=== PATIENT | male | born 1950 | race Caucasian/White ===

== ENCOUNTER 2017-09-15 08:48 | Observation (INO) ==
[2017-09-15] MEDS ORDERED: Ibuprofen 600 MG TABLET PO ONE (09:03)
--- NOTE | 2017-09-15 09:07 | Emergency Department Note ---
Disposition Clinical Impression: Viral infection, CAP (community acquired pneumonia), Hypoxia Disposition: Admitted As Inpatient Condition: Fair Instructions: Community-acquired Pneumonia (ED) Reasons to Return/Additional Instructions: Blood pressure screening: When you had your blood pressure taken, if the top number was greater than 120 with a bottom number was greater than 80, I discussed and recommended that you call your primary care provider or a physician of your choice this week to arrange follow-up for further evaluation of your blood pressure. Elevated blood pressures which go untreated can lead to stroke, heart attack, kidney failure and other life-threatening diseases. This is a screening exam and recommendations are to follow with your Family Physician. ( We discussed reasons why the elevation could be occurring at this time. ) If you have had an EKG and/or x-ray performed in the emergency department, it will be reviewed by the side laster and/or radiologist. If the review changes your diagnosis or treatment you will be contacted at the phone number you provided. Prescribed outpatient testing: Please call to schedule an appointment for the test that was ordered on the form provided. If you been prescribed an antibiotic: Take it as instructed until itis all finished. If you cannot tolerate that medication for some reason, call your physician for a replacement. If he had a specimen collected for a culture, a culture report takes 48-72 hours to generate. You will be contacted if a change in treatment is needed. Return if your condition worsens or if you have severe pain, fever, vomiting or difficulty breathing. If you received or were prescribed a medication that may cause drowsiness ( Tramadol, Phenergan, Trazodone, Diazepam, Lorazepam, Hydroxyzine, Xanax, Hydrocodone, Oxycodone, Codeine, or any other medication) DO NOT drive or drink alcohol, or operate machinery that requires you to be alert for at least 8 hours after taking that medication. If you smoke or chew tobacco products: discuss with your family physician options to help in the cessation in the use of tobacco products. If you to find a physician: Go to [email or web address] or call: [facility] [phone] [facility], You may have multiple scripts and some may have been electronically sent . If you are give a printed script please also take this in when filling the scripts. A diagnosis may require multiple medications to treat and all are important in your healthcare issues. Prescriptions: GuaiFENesin/Dextromethorphan [Robitussin/DM] 10 ml PO Q6HR #180 syrup Albuterol Sulfate [Albuterol Inhaler] 2 puff IH Q6H #1 puff Ciprofloxacin HCl [Cipro] 500 mg PO Q12H #20 tablet Referrals: Calin Grijalva, [employer] SET UP OPERATOR [Primary Care Provider] - Forms: ED Satisfaction Letter Time of Disposition: 11:50 ([facility]) URI/Sore Throat HPI - General Chief Complaint: ED Upper Respiratory Infection Stated Complaint: "Feel like I got the flu." Time Seen by Provider: 09/15/17 08:50 Source: patient Mode of arrival: ambulatory Limitations: no limitations Nursing Notes Reviewed: Yes Vital Signs Reviewed: Yes - History of Present Illness HPI Narrative: Less than 24 hours fever chills cough congestion shortness of breath difficulty ambulating but no blurred vision no double vision denies any neck pain neck stiffness he denies any rash or lesions he denies diarrhea melena hematochezia or hematemesis Pt Subjective Complaint: fever, cough, flu symptoms, nasal congestion Onset (ago): day(s) Duration: constant, gradually worsening Severity: mild Improves with: nothing Worsens with: nothing If sputum, description: watery Context: sick contacts Associated symptoms: Reports: fever, myalgias, nasal congestion, cough, shortness of breath. Denies: chills, voice changes, diaphoresis, headache, rhinorrhea, sore throat, stiff neck, chest pain, abdominal pain, nausea, vomiting, diarrhea, dysuria, epistaxis, ear pain Treatments prior to arrival: acetaminophen, ibuprofen - Related Data Home Medications Medication Instructions Recorded Confirmed Digoxin [Lanoxin] 0.25 mg PO DAILY 08/19/15 09/15/17 Lisinopril [Zestril] 20 mg PO DAILY 08/19/15 09/15/17 Metoprolol [Lopressor] 50 mg PO BID 08/19/15 09/15/17 Warfarin [Coumadin] 7 mg PO 1800 08/19/15 09/15/17 metFORMIN [Glucophage] 1,000 mg PO BIDWM 08/19/15 09/15/17 Previous Rx's Medication Instructions Recorded Albuterol Sulfate [Albuterol 2 puff IH Q6H #1 puff 09/15/17 Inhaler] Ciprofloxacin HCl [Cipro] 500 mg PO Q12H #20 tablet 09/15/17 GuaiFENesin/Dextromethorphan 10 ml PO Q6HR #180 syrup 09/15/17 [Robitussin/DM] Allergies Allergy/AdvReac Type Severity Reaction Status Date / Time No Known Allergies Allergy Verified 08/19/15 21:55 All systems ED: reviewed and negative except as stated. Review of Systems: As Per HPI Constitutional: Denies: fever, chills, weakness Eyes: Denies: eye pain, eye discharge ENT ED: Denies: ear pain Cardiovascular: Denies: chest pain Respiratory: Reports: cough, dyspnea, wheezes, sputum production, other (Hypoxia ) Gastrointestinal: Denies: abdominal pain, nausea, vomiting Genitourinary: Denies: urgency, dysuria Musculoskeletal: Denies: back pain, neck pain Integumentary: Denies: rash, abrasion Neurological: Denies: headache, weakness Psychiatric: Denies: anxiety, depression Endocrine: Denies: fatigue Hematological/Lymphatic: Denies: easy bleeding Allergic/Immunologic: Denies: facial swelling URI PMH - Past Medical History Medical history: Reports: atrial fibrillation (Anticoagulated), diabetes, hypertension Psychiatric history: Reports: no psych history - Social History Smoking Status: Current every day smoker Alcohol use: Reports: none Drug use: Reports: none Physical Exam - General Limitations: no limitations General appearance: alert, in no apparent distress, anxious, cachectic - Head Head exam: atraumatic, normocephalic, normal inspection - Eye Eye exam: Present: normal appearance, PERRL, EOMI - ENT ENT exam: normal exam, normal oropharynx, mucous membranes moist, TM's normal bilaterally, normal external ear exam - Neck Neck exam: Present: normal inspection, full ROM, trachea midline - Chest Chest inspection: Present: normal inspection, symmetric chest wall rise - Respiratory Respiratory exam: Present: wheezes, prolonged expiratory phase - Cardiovascular Cardiovascular exam: Present: irregular rhythm - Abdominal Exam Abdominal exam: Present: soft, Non-Tender, normal bowel sounds. Absent: mass, pulsatile mass - Extremities Exam Extremities exam: Present: normal inspection, full ROM, normal capillary refill. Absent: tenderness - Expanded Lower Extremity Exam Neurovascular/Tendon exam: Present: normal capillary refill, normal fine/light touch Gait: observed and normal - Back Exam Back exam: Present: normal inspection, full ROM. Absent: muscle spasm - Neurological Exam Neurological exam: Present: alert, oriented X3, CN II-XII intact, normal gait - Psychiatric Psychiatric exam: Present: normal affect, normal mood - Skin Skin exam: Present: warm, dry, intact, normal color Course Course Narrative: Seen and examined patient agreed to having IV antibiotics but refuses to stay despite the fact that he is hypoxic having arrhythmia though he has been normotensive during his stay here in the emergency room he has had occasional PVCs with an underlying atrial fibrillation rhythm though repeated efforts by myself and staff to have him stay now reconsidered Patient now is agreeable to staying overnight receiving a dose of IV antibiotics today and a dose of IV antibiotics tomorrow patient transferred to [facility] stable Vital Signs Temperature 101.4 F H 09/15/17 08:51 Pulse Rate 96 09/15/17 08:51 Respiratory Rate 18 09/15/17 08:51 Blood Pressure 158/98 09/15/17 08:51 O2 Sat by Pulse Oximetry 90 09/15/17 08:51 Temperature 100.6 F H 09/15/17 11:10 Pulse Rate 108 09/15/17 11:10 Respiratory Rate 18 09/15/17 11:10 Blood Pressure 155/85 09/15/17 11:10 O2 Sat by Pulse Oximetry 88 09/15/17 11:10 Oxygen Delivery Oxygen Delivery Room Air Upper Respiratory Infection - Differential Diagnosis Differential Diagnosis: Likely: upper respiratory infection, other viral infection, bronchitis, pharyngitis, pneumonia - Medical Records Medical records reviewed: Yes I reviewed the patient's medical records. - Lab Data Lab results reviewed: Yes I reviewed the patient's lab results. Result diagrams: 09/15/17 09:20 09/15/17 09:20 Lab Results 09/15/17 09/15/17 09/15/17 Range/Units 09:20 09:20 09:20 WBC 7.4 (4.3-11.1) K/mcL RBC 5.11 (4.19-5.50) M/mcL Hgb 15.0 (12.9-16.9) g/dL Hct 43.2 (37.5-50.1) % MCV 84.5 (83.0-100.0) fL MCH 29.4 (28.0-33.3) pg MCHC 34.7 (31.6-35.5) g/dL RDW 14.0 (11.5-14.5) % Plt Count 146 (140-400) K/mcL MPV 10.7 (9.4-12.4) fL Immature Gran % 0.5 (0-4) % Seg Neutrophils % 82.9 % Lymphocytes % 7.4 % Monocytes % 7.8 % Eosinophils % 0.7 % Basophils % 0.7 % Neutrophils # 6.2 (1.6-8.9) K/mcL Lymphocytes # 0.6 (0.6-4.6) K/mcL Monocytes # 0.6 (0.0-1.3) K/mcL Eosinophils # 0.1 (0.0-0.6) K/mcL Basophils # 0.1 (0.0-0.2) K/mcL PT (9.4-12.1) Seconds INR APTT 54.0 H (26.0-36.0) Seconds Sodium 135 L (136-145) mEq/L Potassium 3.7 (3.5-5.1) mEq/L Chloride 103 (98-107) mEq/L Carbon Dioxide 23 (23-29) mEq/L BUN 12 (8-23) mg/dL Creatinine 0.68 L (0.70-1.30) mg/dL Est GFR ( Amer) > 60 (> 60) Est GFR (Non-Af Amer) > 60 (> 60) BUN/Creatinine Ratio 18 (6-26) Glucose 204 H (70-105) mg/dL Calculated Osmolality 286 (280-300) Lactic Acid (0.5-2.2) mmol/L Calcium 9.2 (8.6-10.3) mg/dL Troponin I (< 0.04) ng/mL 09/15/17 09/15/17 09/15/17 Range/Units 09:20 09:20 09:20 WBC (4.3-11.1) K/mcL RBC (4.19-5.50) M/mcL Hgb (12.9-16.9) g/dL Hct (37.5-50.1) % MCV (83.0-100.0) fL MCH (28.0-33.3) pg MCHC (31.6-35.5) g/dL RDW (11.5-14.5) % Plt Count (140-400) K/mcL MPV (9.4-12.4) fL Immature Gran % (0-4) % Seg Neutrophils % % Lymphocytes % % Monocytes % % Eosinophils % % Basophils % % Neutrophils # (1.6-8.9) K/mcL Lymphocytes # (0.6-4.6) K/mcL Monocytes # (0.0-1.3) K/mcL Eosinophils # (0.0-0.6) K/mcL Basophils # (0.0-0.2) K/mcL PT 48.3 H* (9.4-12.1) Seconds INR 4.3 APTT (26.0-36.0) Seconds Sodium (136-145) mEq/L Potassium (3.5-5.1) mEq/L Chloride (98-107) mEq/L Carbon Dioxide (23-29) mEq/L BUN (8-23) mg/dL Creatinine (0.70-1.30) mg/dL Est GFR ( Amer) (> 60) Est GFR (Non-Af Amer) (> 60) BUN/Creatinine Ratio (6-26) Glucose (70-105) mg/dL Calculated Osmolality (280-300) Lactic Acid 1.5 (0.5-2.2) mmol/L Calcium (8.6-10.3) mg/dL Troponin I < 0.03 (< 0.04) ng/mL - Radiology Data Radiology results reviewed: Yes I reviewed the patient's radiology results. ITS Impressions Chest X-Ray 09/15/17 09:03 IMPRESSION: No focal consolidative pneumonia. Moderate prominence of interstitial lung markings may represent pulmonary interstitial edema, versus chronic interstitial lung disease. Correlate with volume status. Trace bilateral pleural effusions. D/ / David Vanessa MD / David Vanessa MD Interpreting Provider: David Vanessa MD Chest CT 09/15/17 10:27 IMPRESSION: 1. Findings suspicious for developing pneumonia in the right lower lobe. 2. Scattered ground-glass and sub solid nodules in the right lung, as above. Please see sub solid nodule follow-up guidelines below. 3. Enlarged mediastinal lymph nodes may be reactive. Attention on follow-up imaging is recommended. 4. Cholelithiasis. RECOMMENDATIONS: Fleischner Society guidelines for follow-up and management of incidentally detected subsolid pulmonary nodules: Solitary ground glass nodule < 6 mm - No routine follow-up. > than or equal to 6 mm - CT at 6-12 months to confirm persistence, then CT every 2 years until 5 years. Solitary part-solid nodules < 6 mm - No routine follow-up. > than or equal to 6 mm - CT at 3-6 to confirm persistence. If unchanged and solid component remains less than 6 mm, annual CT should be performed for 5 years. Multiple subsolid nodules < 6 mm - CT at 3-6 months. If stable, consider CT at 2 and 4 years. > than or equal to 6 mm - CT at 3-6 months. Subsequent management based on the most suspicious nodule(s). - Low risk patients include individuals with minimal or absent history of smoking and other known risk factors. - High risk patients include individuals with a history or smoking or known risk factors. Radiology 2017 http://pubs.[facility]na.org/doi/full/10.1148/[email or web address] D/ / Barry Garcia / Barry Garcia Interpreting Provider: Barry Garcia - EKG Data EKG attestation: Yes I reviewed and interpreted this EKG. EKG results narrative: EKG shows PVCs what appears to be consistent with underlying atrial fib he has had diffuse ST segment depression in all leads left access deviation rate 113 QRS 96 QT 321 access -44 Critical Care Time Critical Care Time: Yes Total Critical Care Time: 35 Attestation: Critical care performed: 35 minutes as the results of the patient being persistently hypoxic during his hospitalization trying determine the etiology making sure it is not cardiac versus pulmonary the from CAT scan and appears to be pulmonary in etiology secondary to Time is exclusive of separately billable procedures. Time includes: direct patient care, patient reassessment, coordination of patient care, interpretation of data (laboratory data, radiology data, and respiratory data), review of patient's medical records, medical consultation and documentation of patient care. Procedures included in critical care time: Procedures excluded from critical care time:
[2017-09-15 09:27] LABS: Basophils # 0.1 K/mcL (0.0-0.2); Basophils % 0.7 %; Eosinophils # 0.1 K/mcL (0.0-0.6); Eosinophils % 0.7 %; Hematocrit 43.2 % (37.5-50.1); Immature Granulocytes % 0.5 % (0-4); Lymphocytes # 0.6 K/mcL (0.6-4.6); Lymphocytes % 7.4 %; Mean Corpuscular HGB Conc 34.7 g/dL (31.6-35.5); Mean Corpuscular Hemoglobin 29.4 pg (28.0-33.3); Mean Corpuscular Volume 84.5 fL (83.0-100.0); Mean Platelet Volume 10.7 fL (9.4-12.4); Monocytes # 0.6 K/mcL (0.0-1.3); Monocytes % 7.8 %; Neutrophils # 6.2 K/mcL (1.6-8.9); Platelet Count 146 K/mcL (140-400); Red Blood Count 5.11 M/mcL (4.19-5.50); Segmented Neutrophils % 82.9 %
[2017-09-15] MEDS ORDERED: Aspirin 81 MG TAB.CHEW PO ONE (09:30)
[2017-09-15 09:37] LABS: INR 4.3
[2017-09-15 09:43] LABS: Prothrombin Time 48.3 Seconds (9.4-12.1)
[2017-09-15 09:45] LABS: BUN/Creatinine Ratio 18 (6-26); Blood Urea Nitrogen 12 mg/dL (8-23); Calcium 9.2 mg/dL (8.6-10.3); Carbon Dioxide 23 mEq/L (23-29); Chloride 103 mEq/L (98-107); Glucose 204 mg/dL (70-105); Osmolality,Calculated 286 (280-300); Potassium 3.7 mEq/L (3.5-5.1); Sodium 135 mEq/L (136-145); eGFR For African Americans > 60 (> 60); eGFR For Non-African Americans > 60 (> 60)
[2017-09-15] MEDS ORDERED: Azithromycin 500 MG in D5% in Water 250 ML IVPB ONE (11:52)
--- NOTE | 2017-09-15 15:42 | Internal Med History&Physical ---
Date of Encounter: 09/15/17 Time of Encounter: 15:10 Assessment and Plan (1) CAP (community acquired pneumonia) Current visit: Yes Status: Acute He has been started on Rocephin and Zithromax. Influenza screening test was negative. I will add lactobacillus. Qualifiers: Laterality: right Lung location: lower lobe of lung Qualified Code(s): J18.1 - Lobar pneumonia, unspecified organism (2) Atrial fibrillation Current visit: Yes Status: Chronic We will hold Coumadin since INR elevated. Continue Lanoxin. Recheck labs in a.m. Qualifiers: Atrial fibrillation type: chronic Qualified Code(s): I48.2 - Chronic atrial fibrillation (3) HTN (hypertension) Current visit: Yes Status: Chronic Continue Lopressor and lisinopril. Qualifiers: Hypertension type: essential hypertension Qualified Code(s): I10 - Essential (primary) hypertension Internal Medicine - H&P: HPI Chief complaint: Cough, dyspnea, myalgias Admitted From: Emergency Dept Plans for Post Hospital Care: Home History of present illness: Mr. Pfeiffer is a 67 year old male who came to emergency room complaining of diffuse myalgias, dyspnea, and cough onset previous afternoon. He denies nausea or vomiting. He was evaluated in emergency room and was found to have probable early pneumonia in the right lower lung on chest CT. He was admitted to [facility] floor for ongoing care needs. His respiratory history is significant for having smoked since age 17 up to 2 packs per day. He has not had PFTs and does not use home oxygen. He has not been tested for HENRIETTA. Past Med Surg Social Fam HX - Past Medical History Medical history: atrial fibrillation (Anticoagulated), diabetes, hypertension Psychiatric history: no psych history - Social History Smoking Status: Current every day smoker Smokeless Tobacco Status: No Alcohol use: none Drug use: none Internal Medicine - H&P: Meds Digoxin [Lanoxin] 0.25 mg PO DAILY 08/19/15 [History] Lisinopril [Zestril] 20 mg PO DAILY 08/19/15 [History] Metoprolol [Lopressor] 50 mg PO BID 08/19/15 [History] Warfarin [Coumadin] 7 mg PO 1800 08/19/15 [History] metFORMIN [Glucophage] 1,000 mg PO BIDWM 08/19/15 [History] Albuterol Sulfate [Albuterol Inhaler] 2 puff IH Q6H #1 puff 09/15/17 [Rx] Ciprofloxacin HCl [Cipro] 500 mg PO Q12H #20 tablet 09/15/17 [Rx] GuaiFENesin/Dextromethorphan [Robitussin/DM] 10 ml PO Q6HR #180 syrup 09/15/17 [ Rx] 3 Allergy/AdvReac Type Severity Reaction Status Date / Time No Known Allergies Allergy Verified 08/19/15 21:55 All Systems PM: A 10-system review of systems was performed and is negative for pertinent findings except as documented above in the HPI. Review of systems: Gen.: He states his weight has been stable the past few months Cardiovascular: He has history of hypertension and chronic atrial fibrillation. He denies CT heart failure angina DVT or pulmonary embolus Respiratory: As per history of present illness GI: He denies disorders of his liver gallbladder or exocrine pancreas : He denies hematuria or dysuria or kidney stones Neurologic: He denies large distribution strokes or seizures. Endocrine: He was diagnosed with DM 2 approximately 2011. He has hyperlipidemia but denies thyroid disease Hematology/oncology: Denies blood disorders cancers or anemia. Psychiatric: He denies anxiety depression or other mental health issues Muscle skeletal: He had ankle fracture in 2001 requiring surgical repair. Denies arthritis or gout or other bone joint or muscle disorders. - Constitutional Vitals: Temp Pulse Resp BP Pulse Ox 100.5 F H 93 18 144/77 89 09/15/17 12:47 09/15/17 12:47 09/15/17 12:47 09/15/17 12:47 09/15/17 12:47 Exam: Gen.: He is a well-developed well-nourished male resting comfortably in bed and appears in no severe distress HEENT: Head is atraumatic and normocephalic. Eyes: EOMI. There is no sclerae icterus. Mouth: Mucosa is moist. Neck: Supple and nontender. There is no thyromegaly or adenopathy noted. Heart: Irregularly irregular without murmurs or gallops. Lungs: No wheezes or crackles are heard. Abdomen: Soft and nontender. No masses or guarding noted. Extremities: There is no edema of his legs. He has minimal DJD changes of his hands. Neurologic: Mental status: He is talkative and a good historian. Cranial nerves : Smile is symmetric. Forehead wrinkles bilaterally. Tongue protrudes midline. EOMI. Motor: There is no pronator drift. Cerebellar: Finger to nose is intact bilaterally. Skin: Warm and dry Internal Med - H&P Results - Labs CBC & Chem 7: 09/15/17 09:20 09/15/17 09:20
[2017-09-15] MEDS ORDERED: Albuterol 2.5 MG/3 ML NEBULIZER IH PRN ×2 (15:48→19:56)
[2017-09-15] MEDS ORDERED: *HR* Metformin 500 MG TABLET PO SCH ×2 (17:00→19:56)
[2017-09-15] MEDS ORDERED: 0.9 % Sodium Chloride 1,000 ML IVC ONE (19:02)
[2017-09-15] MEDS ORDERED: Acetaminophen 325 MG TABLET PO PRN ×2 (19:04→19:56)
[2017-09-15] MEDS ORDERED: 0.45 % Sodium Chloride w/KCl 20 MEQ/1,000 ML MLS IVC SCH (19:15)
[2017-09-15] MEDS ORDERED: Lisinopril 20 MG TABLET PO SCH (19:51)
[2017-09-15] MEDS ORDERED: 0.9 % Sodium Chloride 1,000 ML IVC SCH (19:56)
[2017-09-15] MEDS ORDERED: Naloxone 0.4 MG/ML INJ IVP PRN (19:56)
[2017-09-15] MEDS ORDERED: *HR* Warfarin 7.5 MG TABLET PO SCH (19:56)
[2017-09-15] MEDS ORDERED: Nicotine 21 MG PATCH.TD24 TD SCH (20:00)
[2017-09-15] MEDS ORDERED: *HR* Digoxin 0.25 MG TABLET PO SCH (20:00)
[2017-09-15] MEDS: *HR* Digoxin 0.25 MG TABLET PO SCH (20:56)
[2017-09-15] MEDS: 0.45 % Sodium Chloride w/KCl 20 MEQ/1,000 ML MLS IVC SCH (20:56)
[2017-09-15] MEDS: Lactobacillus 1 EACH CAP.SPRINK PO SCH (20:56)
[2017-09-15] MEDS: Nicotine 21 MG PATCH.TD24 TD SCH (20:58)
[2017-09-15] MEDS ORDERED: Lactobacillus 1 EACH CAP.SPRINK PO SCH (21:00)
[2017-09-15 21:45] LABS: Bilirubin,Urine Negative (Negative); Blood,Urine Large (Negative); Clarity,Urine Clear (Clear); Color,Urine Yellow (Yellow); Glucose,Urine (UA) 500 mg/dL (Normal); Ketones,Urine Negative (Negative); Leukocyte Esterase,Urine Negative (Negative); Nitrite,Urine Negative (Negative); PH,Urine 6.5 pH Units (5.0-8.0); Protein,Urine 100 mg/dL (Neg-Trace); Urobilinogen,Urine Normal (Normal)
[2017-09-15 21:54] LABS: RBC,Urine 30-50 per hpf (0-3)
[2017-09-15 21:55] LABS: Yeast,Urine Few per hpf (None Seen)
[2017-09-16] MEDS: 0.45 % Sodium Chloride w/KCl 20 MEQ/1,000 ML MLS IVC SCH (06:22)
[2017-09-16 07:33] LABS: Basophils % 0.7 %; Eosinophils % 0.4 %; Hematocrit 41.8 % (37.5-50.1); Hemoglobin 14.2 g/dL (12.9-16.9); Immature Granulocytes % 0.5 % (0-4); Lymphocytes # 0.9 K/mcL (0.6-4.6); Mean Corpuscular Hemoglobin 29.3 pg (28.0-33.3); Mean Corpuscular Volume 86.2 fL (83.0-100.0); Mean Platelet Volume 11.4 fL (9.4-12.4); Monocytes # 0.8 K/mcL (0.0-1.3); Monocytes % 13.7 %; Neutrophils # 3.9 K/mcL (1.6-8.9); Platelet Count 134 K/mcL (140-400); Red Blood Count 4.85 M/mcL (4.19-5.50); Red Cell Distribution Width 14.3 % (11.5-14.5); Segmented Neutrophils % 68.7 %
[2017-09-16 07:43] LABS: INR 2.3; Prothrombin Time 25.4 Seconds (9.4-12.1)
[2017-09-16 07:46] LABS: Activated Partial Thrombo Time 43.2 Seconds (26.0-36.0)
[2017-09-16 07:50] LABS: BUN/Creatinine Ratio 19 (6-26); Blood Urea Nitrogen 10 mg/dL (8-23); Calcium 8.9 mg/dL (8.6-10.3); Carbon Dioxide 24 mEq/L (23-29); Chloride 104 mEq/L (98-107); Glucose 158 mg/dL (70-105); Osmolality,Calculated 280 (280-300); Potassium 3.9 mEq/L (3.5-5.1); Sodium 134 mEq/L (136-145); eGFR For African Americans > 60 (> 60); eGFR For Non-African Americans > 60 (> 60)
[2017-09-16] MEDS ORDERED: *HR* Metformin 500 MG TABLET PO SCH (08:00)
[2017-09-16] MEDS ORDERED: Azithromycin 500 MG in D5% in Water 250 ML IVPB SCH (09:00)
[2017-09-16] MEDS ORDERED: Lisinopril 20 MG TABLET PO SCH ×4 (09:00)
[2017-09-16] MEDS ORDERED: *HR* SitaGLIPtin 100 MG TABLET PO SCH (09:00)
[2017-09-16] MEDS ORDERED: *HR* Digoxin 0.25 MG TABLET PO SCH (09:00)
[2017-09-16] MEDS: Nicotine 21 MG PATCH.TD24 TD SCH (09:00)
[2017-09-16] MEDS ORDERED: cefTRIAXone 1,000 MG in Water for inj. (sterile) 20 ML 10 ML IVP SCH (09:00)
[2017-09-16] MEDS ORDERED: amLODIPine 5 MG TABLET PO SCH (09:00)
[2017-09-16] MEDS: Lactobacillus 1 EACH CAP.SPRINK PO SCH (09:00)
[2017-09-16] MEDS: *HR* Digoxin 0.25 MG TABLET PO SCH (09:18)
[2017-09-16] MEDS ORDERED: *HR* SitaGLIPtin 25 MG TABLET PO SCH (09:30)
--- NOTE | 2017-09-16 11:10 | Discharge Summary ---
Date of Encounter: 09/16/17 Time of Encounter: 10:55 - Discharge Diagnosis (1) CAP (community acquired pneumonia) Priority: Primary Status: Acute Qualifiers: Laterality: right Lung location: lower lobe of lung Qualified Code(s): J18.1 - Lobar pneumonia, unspecified organism (2) Atrial fibrillation Priority: Secondary Status: Chronic Qualifiers: Atrial fibrillation type: chronic Qualified Code(s): I48.2 - Chronic atrial fibrillation (3) HTN (hypertension) Priority: Secondary Status: Chronic Qualifiers: Hypertension type: essential hypertension Qualified Code(s): I10 - Essential (primary) hypertension - Discharge Medications Prescriptions: Cefuroxime PO [Ceftin] 500 mg PO Q12HR #8 tablet Azithromycin [Zithromax] 250 mg PO DAILY #4 tablet Lactobacillus [Culturelle] 1 each PO BID #8 [email or web address] Home Medications: Digoxin [Lanoxin] 0.25 mg PO DAILY 08/19/15 [History] Lisinopril [Zestril] 40 mg PO DAILY 08/19/15 [History] Metoprolol [Lopressor] 100 mg PO BID 08/19/15 [History] metFORMIN [Glucophage] 1,000 mg PO BIDWM 08/19/15 [History] Albuterol Sulfate [Albuterol Inhaler] 2 puff IH Q6H #1 puff 09/15/17 [Rx] Ezetimibe [Zetia] 10 mg PO QDPC 09/15/17 [History] [place]-3/Dha/Epa/Fish Oil [Fish Oil 1,000 mg Softgel] 1 each PO QDPC 09/15/17 [ History] SitaGLIPtin [Januvia] 100 mg PO DAILY 09/15/17 [History] amLODIPine [Norvasc] 10 mg PO QDPC 09/15/17 [History] Azithromycin [Zithromax] 250 mg PO DAILY #4 tablet 09/16/17 [Rx] Cefuroxime PO [Ceftin] 500 mg PO Q12HR #8 tablet 09/16/17 [Rx] Lactobacillus [Culturelle] 1 each PO BID #8 cap.[email or web address] 09/16/17 [Rx] Warfarin [Coumadin] 7.5 mg PO Q48H #0 09/16/17 [Rx] Allergies/Adverse Reactions: 3 Allergy/AdvReac Type Severity Reaction Status Date / Time No Known Allergies Allergy Verified 12/22/15 21:55 Date of admission: 09/15/17 12:11 Primary care physician: Calin Grijalva CNP - Patient Status Disposition: Home, Self-Care Condition: Fair Functional capacity at discharge: independent ambulation Overall status at discharge: patient is progressing back to baseline - Discharge Instructions Follow Up With: Calin Grijalva CNP [Primary Care Provider] - 1 week - Diet and Activity Activity: wear oxygen at all times Diet: advance to your usual diet Hospital course: Mr. Pfeiffer is a 67 year old male came to emergency room complaining of diffuse myalgias, dyspnea, and cough onset previous afternoon. He denies nausea or vomiting. He was evaluated in emergency room and was found to have probable early pneumonia in the right lower lung on chest CT. He was admitted to [facility] for ongoing care needs. Initial orders were written by the emergency room physician. I saw him on September 15 and performed a history and physical. He was started on IV Rocephin and Zithromax with lactobacillus for developing right lower lobe pneumonia. There were scattered groundglass and sub-solid nodules in the right lung. Repeat CT in 3-6 months was recommended. His PCP can order this. He had good clinical response and remained afebrile during his hospital stay. WBC improved to 5.6 with resolution the left shift on day of discharge. Room air oximetry showed saturation of 84% at rest. He became more dyspneic and oxygen was reinstituted immediately for patient's safety and comfort. He will be prescribed oxygen at 2 L/m per nasal cannula 21/03 with diagnosis COPD with hypoxemia. I encouraged him to become a nonsmoker. His PCP can monitor improvement and determine ongoing need for oxygen. He will be discharged home and follow with his PCP Calin Grijalva CNP within 1 week. - Time Spent with Patient Total time spent providing and/or coordinating discharge services: - Constitutional Vitals: Temp Pulse Resp BP Pulse Ox 98.6 F 90 18 149/81 95 09/16/17 06:27 09/16/17 08:58 09/16/17 06:27 09/16/17 08:58 09/16/17 08:58
[2017-09-16 11:32] VITALS: BP 127/91
--- NOTE | 2017-09-17 07:18 | Electrocardiograph Report ---
[address] [address] Test Date: 2017-09-15 Pat Name: Eric Pfeiffer Department: [id number] Room: [facility] Gender: M [employer]: [id number] : 1950 Requested By: Faustina Oconnor Order Number: [id number] Reading MD: Arley Huffmna MD Measurements Intervals [place] Rate: 113 P: [place]: 0 QRS: -44 QRSD: 96 T: 70 QT: 321 QTc: 388 Interpretive Statements ATRIAL FIBRILLATION WITH RAPID VENTRICULAR RESPONSE WITH ABERRANT CONDUCTION OR VENTRICULAR PREMATURE COMPLEXES MARKED LEFT AXIS DEVIATION Electronically Signed On 09-17-2017 7:16:17 EST by Arley Huffman MD
[2017-09-17] MEDS ORDERED: *HR* SitaGLIPtin 25 MG TABLET PO SCH (09:00)
== END 2017-09-16 14:41 | disposition home or self-care (01) ==
LOC: INPPIK 08:48 → EMEROOPIK 08:48 → INPPIK 12:49
PROVIDERS: ADMIT Internal Medicine; ATTEND Internal Medicine

== ENCOUNTER 2021-05-29 14:12 | Inpatient (IN) ==
[2021-05-29 16:39] LABS: Basophils % 0.3 %; Eosinophils % 0.4 %; Hematocrit 39.7 % (37.5-50.1); Hemoglobin 13.1 g/dL (12.9-16.9); Immature Granulocytes % 0.7 % (0-4); Lymphocytes # 1.3 K/mcL (0.6-4.6); Lymphocytes % 17.8 %; Mean Corpuscular Hemoglobin 27.9 pg (28.0-33.3); Mean Corpuscular Volume 84.5 fL (83.0-100.0); Mean Platelet Volume 10.4 fL (9.4-12.4); Monocytes # 0.9 K/mcL (0.0-1.3); Monocytes % 12.5 %; Platelet Count 212 K/mcL (140-400); Red Cell Distribution Width 16.2 % (11.5-14.5); Segmented Neutrophils % 68.3 %; White Blood Count 7.4 K/mcL (4.3-11.1)
[2021-05-29 16:50] LABS: Activated Partial Thrombo Time 73.2 Seconds (26.0-36.0)
[2021-05-29 16:55] LABS: Alanine Aminotransferase 17 Units/L (7-52); Albumin 3.2 g/dL (3.5-5.7); Albumin/Globulin Ratio 0.8 (1.1-2.2); Alkaline Phosphatase 170 Units/L (34-104); Aspartate Amino Transferase 20 Units/L (13-39); BUN/Creatinine Ratio 25 (6-26); Bilirubin,Direct 0.1 mg/dL (0.0-0.2); Bilirubin,Indirect 0.4 mg/dL (0.0-1.0); Bilirubin,Total 0.5 mg/dL (0.3-1.0); Blood Urea Nitrogen 14 mg/dL (8-23); Calcium 8.7 mg/dL (8.6-10.3); Carbon Dioxide 23 mEq/L (23-29); Chloride 99 mEq/L (98-107); Globulin 3.9 g/dL (2.4-3.5); Glucose 106 mg/dL (70-105); Magnesium 1.6 mg/dL (1.6-2.6); Osmolality,Calculated 275 (280-300); Phosphorous 2.8 mg/dL (2.7-4.5); Sodium 132 mEq/L (136-145); Total Protein 7.1 g/dL (6.4-8.9); eGFR For African Americans > 60 (> 60); eGFR For Non-African Americans > 60 (> 60)
[2021-05-29 16:56] LABS: INR 6.5; Prothrombin Time 71.5 Seconds (9.4-12.1)
[2021-05-29 16:59] LABS: Troponin I < 0.03 ng/mL (< 0.04)
[2021-05-29] MEDS ORDERED: Ondansetron 4 MG/2 ML VIAL IVP PRN (18:15)
[2021-05-29] MEDS ORDERED: Naloxone 0.4 MG/ML INJ IVP PRN (18:15)
[2021-05-29] MEDS ORDERED: Acetaminophen 325 MG TABLET PO PRN (18:15)
[2021-05-29] MEDS ORDERED: *HR* HYDROcodone/Acet 5/325 mg TABLET PO PRN (18:19)
[2021-05-29] MEDS ORDERED: D5% in Water 1,000 ML IVC PRN (18:35)
[2021-05-29] MEDS ORDERED: *HR* Dextrose 50 % in Water (Syg) 50 ML SYRINGE IVP PRN (18:35)
[2021-05-29] MEDS ORDERED: Dextrose Gel 15 GM/37.5 ML TUBE PO PRN ×2 (18:35)
[2021-05-29] MEDS: Insulin LISPRO 300 UNITS/3 ML VIAL SUBQ SCH (20:54)
[2021-05-29] MEDS: Budesonide/Formoterol 160/4.5 1 PUFF INH IH SCH (22:13)
[2021-05-29] MEDS: Nicotine 21 MG PATCH.TD24 TD SCH (22:24)
[2021-05-29] MEDS: Furosemide 20 MG/2 ML VIAL IVP SCH (22:25)
[2021-05-30 07:40] LABS: BUN/Creatinine Ratio 35 (6-26); Blood Urea Nitrogen 19 mg/dL (8-23); Calcium 8.5 mg/dL (8.6-10.3); Carbon Dioxide 22 mEq/L (23-29); Chloride 101 mEq/L (98-107); Glucose 158 mg/dL (70-105); Osmolality,Calculated 284 (280-300); Potassium 4.1 mEq/L (3.5-5.1); Sodium 134 mEq/L (136-145); eGFR For African Americans > 60 (> 60); eGFR For Non-African Americans > 60 (> 60)
[2021-05-30 07:43] LABS: INR 8.2; Prothrombin Time 89.4 Seconds (9.4-12.1)
[2021-05-30 08:25] LABS: Basophils % 0.3 %; Hematocrit 40.2 % (37.5-50.1); Hemoglobin 13.1 g/dL (12.9-16.9); Lymphocytes # 0.6 K/mcL (0.6-4.6); Lymphocytes % 15.9 %; Mean Corpuscular HGB Conc 32.6 g/dL (31.6-35.5); Mean Corpuscular Hemoglobin 27.9 pg (28.0-33.3); Mean Corpuscular Volume 85.5 fL (83.0-100.0); Mean Platelet Volume 11.2 fL (9.4-12.4); Monocytes # 0.3 K/mcL (0.0-1.3); Monocytes % 8.4 %; Platelet Count 218 K/mcL (140-400); Red Cell Distribution Width 16.1 % (11.5-14.5); Segmented Neutrophils % 74.4 %
[2021-05-30] MEDS: Furosemide 20 MG/2 ML VIAL IVP SCH ×2 (08:55→20:43)
[2021-05-30] MEDS: Ezetimibe [Zetia] 10 MG Tablet PO SCH (08:57)
[2021-05-30] MEDS: lisinopriL 20 MG TABLET PO SCH (08:57)
[2021-05-30] MEDS: *HR* Digoxin 0.25 MG TABLET PO SCH (08:57)
[2021-05-30] MEDS: amLODIPine 5 MG TABLET PO SCH (08:57)
[2021-05-30] MEDS: Nicotine 21 MG PATCH.TD24 TD SCH (08:57)
[2021-05-30] MEDS: Insulin LISPRO 300 UNITS/3 ML VIAL SUBQ SCH ×4 (09:01→20:43)
[2021-05-30] MEDS ORDERED: 0.9 % Sodium Chloride 250 ML IVC SCH (09:30)
[2021-05-30] MEDS: Budesonide/Formoterol 160/4.5 1 PUFF INH IH SCH ×2 (10:51→21:25)
[2021-05-30] MEDS: *HR* SitaGLIPtin 100 MG TABLET PO SCH (13:15)
[2021-05-30 17:21] LABS: INR 4.9; Prothrombin Time 53.8 Seconds (9.4-12.1)
[2021-05-30] MEDS ORDERED: Benzonatate 100 MG CAPSULE PO PRN (20:19)
[2021-05-31 08:23] LABS: Basophils % 0.1 %; Eosinophils % 0.1 %; Hematocrit 38.7 % (37.5-50.1); Hemoglobin 12.6 g/dL (12.9-16.9); Immature Granulocytes % 0.6 % (0-4); Lymphocytes % 11.8 %; Mean Corpuscular HGB Conc 32.6 g/dL (31.6-35.5); Mean Corpuscular Hemoglobin 28.2 pg (28.0-33.3); Mean Corpuscular Volume 86.6 fL (83.0-100.0); Mean Platelet Volume 10.9 fL (9.4-12.4); Monocytes # 0.9 K/mcL (0.0-1.3); Monocytes % 10.8 %; Neutrophils # 6.5 K/mcL (1.6-8.9); Platelet Count 242 K/mcL (140-400); Red Blood Count 4.47 M/mcL (4.19-5.50); Red Cell Distribution Width 16.3 % (11.5-14.5); Segmented Neutrophils % 76.6 %; White Blood Count 8.5 K/mcL (4.3-11.1)
[2021-05-31] MEDS: Insulin LISPRO 300 UNITS/3 ML VIAL SUBQ SCH ×2 (08:34→12:25)
[2021-05-31] MEDS: Ezetimibe [Zetia] 10 MG Tablet PO SCH (08:35)
[2021-05-31 08:39] LABS: INR 4.8; Prothrombin Time 53.1 Seconds (9.4-12.1)
[2021-05-31 08:42] LABS: BUN/Creatinine Ratio 41 (6-26); Blood Urea Nitrogen 24 mg/dL (8-23); Calcium 9.1 mg/dL (8.6-10.3); Carbon Dioxide 30 mEq/L (23-29); Chloride 103 mEq/L (98-107); Glucose 190 mg/dL (70-105); Osmolality,Calculated 297 (280-300); Potassium 3.8 mEq/L (3.5-5.1); Sodium 139 mEq/L (136-145); eGFR For African Americans > 60 (> 60); eGFR For Non-African Americans > 60 (> 60)
[2021-05-31] MEDS: *HR* SitaGLIPtin 100 MG TABLET PO SCH (08:45)
[2021-05-31] MEDS: lisinopriL 20 MG TABLET PO SCH (08:45)
[2021-05-31] MEDS: amLODIPine 5 MG TABLET PO SCH (08:45)
[2021-05-31] MEDS: *HR* Digoxin 0.25 MG TABLET PO SCH (08:45)
[2021-05-31] MEDS: Nicotine 21 MG PATCH.TD24 TD SCH (08:46)
[2021-05-31] MEDS: Budesonide/Formoterol 160/4.5 1 PUFF INH IH SCH (10:23)
[2021-05-31 11:50] VITALS: BP 148/75; PULSE 68; RESP 18; TEMP 97.7; O2SAT 92
== END 2021-05-31 16:05 | disposition home or self-care (01) | DRG 177 ==
LOC: EMEROOPIK 14:12 → INPPIK 14:12
PROVIDERS: ADMIT Internal Medicine; ATTEND Internal Medicine